=== PATIENT | male | born 1985 | race Caucasian/White ===

== ENCOUNTER 2021-01-14 13:10 | Emergency (ER) | payer OTHER, SELFPAY ==
--- NOTE | ~2021-01-14 | CT_ITS ---
EXAMINATION: CT brain wo con INDICATION: Altered mental status, intoxication COMPARISON: None TECHNIQUE: Standard unenhanced head CT. The dose-length product (DLP) was 681.00 mGy-cm. The mA was a djusted according to patient size. Iterative reconstruction technique was employed. FINDINGS: There is no intracranial hemorrhage, acute infarction, or abnormal mass lesion. The ventric les are normal. There is no abnormal mass effect or midline shift. The coyle-white matter differentiat ion is normal. The basal cisterns are patent. The orbits are normal. The paranasal sinuses, mastoids and calvarium are normal. IMPRESSION: 1. No acute intracranial abnormality. Reviewed, dictated and finalized at location A.
[2021-01-14 13:21] VITALS: BP 132/95; PULSE 99; RESP 20; TEMP 36.7; O2SAT 95
--- NOTE | 2021-01-14 13:36 | PC.NURSE ---
Pt took his prescription citalopram and buproprion as well as smoked marijuana and drank approx one and a half fifths of vodka. Per ex- pt was been drinking for approx 3 days and has been in rehab for alcohol before.
--- NOTE | 2021-01-14 13:41 | ECG_ITS ---
Measurements Intervals [place] Rate: 91 P: 18 OR: 177 QRS: -15 QRSD: 99 T: 20 QT: 366 QTc: 452 Interpretive Statements SINUS RHYTHM BASELINE WANDER- AVR, AVL, AVF NORMAL ECG Electronically Signed On 01-14-2021 14:00:05 CDT by Luis Troncoso D.O.
[2021-01-14 13:55] LABS: Basophils Absolute Auto 0.1 K/mm3 (0.0-0.1); Basophils Percent Auto 0.7 % (0.2-1.2); Eosinophils Absolute Auto 0.1 K/mm3 (0-0.3); Eosinophils Percent Auto 0.7 % (0-4.4); Hematocrit 49.6 % (42.0-52.0); Hemoglobin 17.4 g/dL (14.0-18.0); Immature Granulocyte Absolute 0.03 K/mm3 (0.00-0.031); Immature Granulocyte Percent A 0.3 % (0-0.5); Lymphocytes Absolute Auto 3.26 K/mm3 (0.9-3.2); Lymphocytes Percent Auto 37.3 % (18.3-44.2); Mean Corpuscular HGB Conc 35.1 g/dl (32-36); Mean Corpuscular Hemoglobin 32.8 pg (26-34); Mean Corpuscular Volume 93.4 fl (80-100); Mean Platelet Volume 9.7 fl (7.4-10.4); Monocytes Absolute Auto 0.5 K/mm3 (0.1-0.6); Monocytes Percent Auto 5.2 % (2.6-8.5); Neutrophils Absolute Auto 4.9 K/mm3 (1.3-6.7); Neutrophils Percent Auto 55.8 % (45.5-73.1); Platelet Count Result 272 k/mm3 (150-375); Red Blood Count 5.31 M/mm3 (4.6-6.20); Red Cell Distribution Width 11.7 % (11.5-14.5); White Blood Count 8.7 K/mm3 (4.5-10.0)
--- NOTE | 2021-01-14 13:55 | ED.AMS ---
HPI - Altered Mental Status General Chief Complaint: Altered Mental Status Stated Complaint: etoh intox Time Seen by Provider: 01/14/21 13:55 Source: patient and family Mode of arrival: ambulatory Limitations: no limitations History of Present Illness HPI narrative: Patient is a 35-year-old male with a history of alcohol abuse who presents for evaluation of altered mental status and alcohol intoxication. At the time of my assessment, the patient is alert and oriented to person, place, and to time. His sister and ex- are at bedside. The patient's ex- states that she checked on him today after not hearing from him for several hours and was worried given his history of alcohol abuse. When she showed up at the house, the patient answered the door and was acutely intoxicated. He currently is tearful, denying any headache, chest pain or abdominal pain. No nausea or vomiting. He reports drinking greater than 1/5 daily for the past 3 days. States that he has been a heavy daily drinker for many years. He denies history of alcohol withdrawal seizures. He states he was in a rehab facility once prior. He denies fever or chills. No recent falls or injuries. He does report marijuana use. Patient endorses many stressors currently including recent divorce from his precipitating his heavy drinking. Patient denies homicidal or suicidal ideation. States he has 2 children that he finds maegan in. Denies suicide attempt. Related Data Home Medications Medication Instructions Recorded Confirmed bupropion HCl 150 mg 24 hr tablet, 150 mg PO QAM 11/26/20 12/04/20 extended release citalopram 40 mg tablet 40 mg PO DAILY 11/26/20 12/04/20 hydrochlorothiazide 25 mg tablet 25 mg PO DAILY 11/26/20 12/04/20 losartan 50 mg tablet 50 mg PO DAILY 11/26/20 12/04/20 Allergies Allergy/AdvReac Type Severity Reaction Status Date / Time lisinopril Allergy Mild Cough Verified 11/26/20 14:13 Review of Systems Review of Systems: Narrative: CONSTITUTIONAL: Denies fever, chills, or sweats. EYES: Denies visual changes, redness, or discharge. ENT: Denies rhinorrhea, congestion, sore throat, or otalgia. CARDIOVASCULAR: Denies current chest pain, palpitations, or edema. RESPIRATORY: Denies cough or dyspnea. GASTROINTESTINAL: Denies abdominal pain, nausea, vomiting, or diarrhea. GENITOURINARY: Denies dysuria or hematuria. SKIN: Denies rash or itching. MUSCULOSKELETAL: Denies back pain, joint pain, or myalgia. NEUROLOGIC: Denies headache, numbness, or weakness. [facility] Past Medical History Medical History (Updated 01/14/21 @ 16:34 by Alina Em MD) BMI 39.0-39.9,adult ETOH abuse Hypertension Screening for thyroid disorder Family History Family History Other Family history of lung cancer Social History Social History (Updated 01/14/21 @ 14:50 by Alina Em MD) Smoking status: Never smoker Second hand tobacco smoke exposure: No Alcohol intake: current Substance use: current Substance use type: marijuana Living arrangements: alone Gender identity (if verbalized by the patient): Male Exam Narrative: Exam Narrative: GENERAL: Awake, alert, conversant, tearful HEAD: Normocephalic, atraumatic. EYES: PERRLA and EOMI. ENT: Nares clear, no rhinorrhea or epistaxis. Mucous membranes moist. NECK: Supple. CHEST: No respiratory distress, breathing even and non labored HEART: Borderline tachycardic rate, sinus rhythm ABDOMEN:Non distended, non tender EXTREMITIES: Normal range of motion. No edema. SKIN: Warm, dry, no rash. NEURO:No focal deficits. Alert and oriented x3 Course Vital Signs Vital signs: Vital Signs Temperature 36.7 C 01/14/21 13:21 Pulse Rate 99 01/14/21 13:21 Respiratory Rate 20 01/14/21 13:21 Blood Pressure 132/95 H 01/14/21 13:21 Pulse Oximetry 95 01/14/21 13:21 Temperature 36.7 C 01/14/21 13:21 Pulse Rate 99 01/14/21 13:
[2021-01-14 14:03] LABS: Alanine Aminotransferase 64 U/L (4-50); Albumin Level 4.5 g/dL (3.5-5.1); Alkaline Phosphatase 110 U/L (38-126); Anion Gap 12 mmol/L (8-16); Aspartate Amino Transferase 185 U/L (17-59); Bilirubin,Total 0.4 mg/dL (0.2-1.3); Blood Urea Nitrogen 10 mg/dL (9-20); Calcium 9.3 mg/dL (8.4-10.2); Carbon Dioxide 30 mmol/L (22-30); Chloride 104 mmol/L (98-107); Estimated CRCL calculation 176 ml/min; Estimated Glomerular Filt Rate > 60; Glucose 97 mg/dL (75-110); Sodium 146 mmol/L (137-145)
[2021-01-14] MEDS: THIAMINE HCL INJ 100 MG, FOLIC ACID INJ 1 MG, MULTIVITAMINS-12 INJ VIAL 1 5 ML, MULTIVI... IV CONT (14:41)
[2021-01-14 15:25] LABS: Add Urine Microscopic? YES; Appearance Urine Clear (Clear); Bacteria Urine Trace /hpf; Bilirubin Urine Negative (Negative); Blood Urine Negative (Negative); Color Urine Yellow (Yellow); Glucose Urine UA Negative (Negative); Ketones Urine Negative (Negative); Leukocyte Esterase Ur Negative LEU/UL (Negative); Nitrate Urine Negative (Negative); Protein Urine Negative (Negative); RBC Urine 0-2 /hpf (0-2); Specific Grav Ur 1.012 (1.001-1.035); WBC Urine 0-3 /hpf
[2021-01-14 15:33] LABS: Magnesium 1.9 mg/dL (1.6-2.3); Phosphorus 3.1 mg/dL (2.5-4.5)
[2021-01-14 16:13] LABS: Ethanol 341 mg/dL (<10)
[2021-01-14 16:32] LABS: Amphetamine Screen Urine Negative (Negative); Barbiturate Screen Urine Negative (Negative); Benzodiazepines Screen Urine Negative (Negative); Cannabinoid Screen Urine Positive (Negative); Cocaine Screen Urine Negative (Negative); Methadone Screen Urine Negative (Negative); Opiate Screen Urine Negative (Negative); Phencyclidine Screen Urine Negative (Negative)
[2021-01-14 17:06] VITALS: BP 150/100; PULSE 95; RESP 13; O2SAT 99
== END 2021-01-14 17:18 | disposition home or self-care (01) ==
PROVIDERS: Emergency Medicine; Emergency Provider Emergency Medicine; PCP Family Medicine
DX: F10.129 Alcohol abuse with intoxication, unspecified (principal); Y90.0 Blood alcohol level of less than 20 mg/100 ml; I10 Essential (primary) hypertension
CPT/HCPCS: 36415; 70450; 80053; 80307; 81001; 83735; 84100; 84443; 85025; 93005; 96365; 96366; 99284; J3411; J3475; J7121

== ENCOUNTER 2022-05-20 10:43 | Observation (INO) | payer OTHER, SELFPAY ==
[2022-05-20] VITALS (36 sets, daily range): BP systolic 102–170; BP diastolic 61–116; PULSE 93–108; RESP 14–25; TEMP 36.8–37; O2SAT 88–100; BMI 45.6
--- NOTE | ~2022-05-20 | XR_ITS ---
EXAMINATION: XR chest 2V DATE: 05/20/2022 11:29 INDICATION: Chest pain TECHNIQUE: AP and lateral views of the chest are obtained. COMPARISON: None available FINDINGS: The lungs are free of acute opacities. No pleural effusion or pneumothorax. The cardiomedia stinal silhouette is normal. The visualized bones and soft tissues are unremarkable. Calcified pulmon lex nodules are consistent with old granulomatous disease. IMPRESSION: 1. No acute cardiopulmonary abnormality. Reviewed, dictated and finalized at location A.
--- NOTE | 2022-05-20 10:54 | ECG_ITS ---
Measurements Intervals [place] Rate: 107 P: 52 DE: 161 QRS: -31 QRSD: 98 T: 30 QT: 329 QTc: 439 Interpretive Statements SINUS TACHYCARDIA LEFT AXIS DEVIATION POOR R WAVE PROGRESSION, ANTERIOR LEADS BASELINE ARTIFACT- I, III, AVL ABNORMAL ECG COMPARED TO ECG 01/14/2021 13:53:15 SINUS TACHYCARDIA NOW PRESENT LEFT-AXIS DEVIATION NOW PRESENT Electronically Signed On 05-20-2022 11:17:14 CDT by Luis Troncoso D.O.
[2022-05-20 11:16] LABS: Basophils Absolute Auto 0.1 K/mm3 (0.0-0.1); Basophils Percent Auto 0.5 % (0.2-1.2); Eosinophils Percent Auto 0.1 % (0-4.4); Immature Granulocyte Absolute 0.07 K/mm3 (0.00-0.031); Immature Granulocyte Percent A 0.5 % (0-0.5); Lymphocytes Absolute Auto 2.15 K/mm3 (0.9-3.2); Lymphocytes Percent Auto 14.2 % (18.3-44.2); Mean Corpuscular HGB Conc 35.3 g/dl (32-36); Mean Corpuscular Hemoglobin 30.4 pg (26-34); Monocytes Absolute Auto 0.8 K/mm3 (0.1-0.6); Monocytes Percent Auto 5.1 % (2.6-8.5); Neutrophils Absolute Auto 12.1 K/mm3 (1.3-6.7); Neutrophils Percent Auto 79.6 % (45.5-73.1); Platelet Count Result 270 k/mm3 (150-375); Red Blood Count 5.93 M/mm3 (4.6-6.20); Red Cell Distribution Width 13.2 % (11.5-14.5); White Blood Count 15.2 K/mm3 (4.5-10.0)
[2022-05-20 11:40] LABS: Albumin Level 4.8 g/dL (3.5-5.1); Alkaline Phosphatase 139 U/L (38-126); Anion Gap 20 mmol/L (8-16); Aspartate Amino Transferase 75 U/L (17-59); Bilirubin,Total 1.4 mg/dL (0.2-1.3); Blood Urea Nitrogen 13 mg/dL (9-20); Calcium 9.4 mg/dL (8.4-10.2); Carbon Dioxide 24 mmol/L (22-30); Chloride 93 mmol/L (98-107); Estimated CRCL calculation 150 ml/min; Estimated Glomerular Filt Rate > 60; Glucose 125 mg/dL (65-110); Lipase 66 U/L (23-300); Potassium 3.9 mmol/L (3.4-5.0); Sodium 137 mmol/L (137-145)
[2022-05-20 11:43] LABS: Troponin I 0.029 ng/mL (0.000-0.034)
[2022-05-20 11:47] LABS: Alanine Aminotransferase 100 U/L (6-50)
[2022-05-20 11:51] LABS: Ethanol < 10 mg/dL (<10)
[2022-05-20 11:58] LABS: INR 1.1; Prothrombin Time 13.7 Seconds (11.1-14.7)
[2022-05-20 11:59] LABS: Partial Thromboplastin Time 27.7 SECONDS (22.3-36.8)
[2022-05-20] MEDS: SODIUM CHLORIDE 0.9% IV 1,000 ML 999 ML IV CONT (12:02)
[2022-05-20] MEDS: PANTOPRAZOLE SODIUM IV 40 MG VIAL IV PUSH ×2 (12:03→20:16)
[2022-05-20] MEDS: ONDANSETRON INJ 4 MG/2 ML VIAL IV PUSH (12:03)
[2022-05-20 12:22] LABS: Amphetamine Screen Urine Negative (Negative); Barbiturate Screen Urine Negative (Negative); Benzodiazepines Screen Urine Negative (Negative); Cannabinoid Screen Urine Positive (Negative); Cocaine Screen Urine Negative (Negative); Methadone Screen Urine Negative (Negative); Opiate Screen Urine Negative (Negative); Phencyclidine Screen Urine Negative (Negative)
--- NOTE | 2022-05-20 12:29 | ED.ALCOHOL ---
HPI - Alcohol General Chief Complaint: Alcohol Stated Complaint: ETOH WITHDRAWLS Time Seen by Provider: 05/20/22 11:40 Source: patient Mode of arrival: ambulatory Limitations: no limitations History of Present Illness HPI narrative: This is a 36 year old male that presents to the ER for alcohol withdrawal. Reports he was on a stone the last couple of days. He drinks vodka and beer. Reports his last drink was at about 1AM. Reports some chest discomfort that started yesterday. Reports a tightness. It was improved with Protonix. Also reports nausea, vomiting, feeing shaky, anxiousness. Reports his blood pressure has been elevated as well as his heart rate. Reports he was seeing patterns on his carpet this morning. Also reports shortness of breath. Denies lower extremity edema. Related Data Home Medications Medication Instructions Recorded Confirmed clonidine HCl 0.1 mg tablet 0.1 mg PO DAILY 05/15/21 08/13/21 Allergies Allergy/AdvReac Type Severity Reaction Status Date / Time lisinopril Allergy Mild Cough Verified 05/20/22 08:42 Review of Systems Review of Systems: CONSTITUTIONAL: Denies fever EYES: Reports visual changes CARDIOVASCULAR: Reports chest pain RESPIRATORY: Reports dyspnea. GASTROINTESTINAL: Reports nausea, vomiting PSYCHIATRIC: Reports anxiety All systems reviewed & are unremarkable except as noted in HPI and below PMFSH Past Medical History Medical History (Updated 05/20/22 @ 14:31 by Nancie Leos PA-C) Alcohol abuse Anxiety and depression Anxiety disorder, unspecified BMI 39.0-39.9,adult BMI 40.0-44.9, adult BMI 45.0-49.9, adult Dietary counseling and surveillance (09/02/17) Essential (primary) hypertension ETOH abuse Hypertension Impacted cerumen of left ear Influenza Morbid (severe) obesity due to excess calories Screening for diabetes mellitus Screening for lipid disorders Screening for thyroid disorder Surgical History Surgical History (Updated 05/20/22 @ 13:44 by Lucia Garzon NP) H/O wisdom tooth extraction Family History Family History Father Alcohol abuse Mother Tobacco abuse Sibling No problems noted. Other Family history of lung cancer Social History Social History (Updated 05/20/22 @ 13:46 by Lucia Garzon NP) Social History: 2 daughters divorved yakov guzman Smoking status: Current some day smoker (vaping, e cigarette) Tobacco type: e-cigarettes/vaping Second hand tobacco smoke exposure: Yes Alcohol intake: current Substance use: current Substance use type: marijuana Additional occupation/education comments: [employer]. Gender identity (if verbalized by the patient): Male Exam Narrative: GENERAL: Well-nourished, in no acute distress HEAD: Normocephalic, atraumatic. EYES: EOMI. ENT: Nares clear, no rhinorrhea or epistaxis. Mucous membranes moist. Oropharynx without tonsillar hypertrophy exudate or other lesions. NECK: Supple. No adenopathy or masses. CHEST: Clear to auscultation. No respiratory distress. No wheezes rales or rhonchi HEART: Regular rate and rhythm. No murmur heard. Normal peripheral pulses. ABDOMEN: Soft, nontender, nondistended, normal active bowel sounds. EXTREMITIES: Normal range of motion. No edema. SKIN: Warm, dry, no rash. NEURO: No focal deficits. Alert and oriented x3. PSYCH: Anxious Course Consultations Consultation #1: Spoke with hospitalist about patient and work-up who accepts admission Date: 05/20/22 Vital Signs Vital signs: Vital Signs Pulse Rate 103 H 05/20/22 10:53 Respiratory Rate 17 05/20/22 10:53 Pulse Oximetry 97 05/20/22 10:53 Temperature 98.2 F 05/20/22 10:55 Pulse Rate 93 05/20/22 13:28 Respiratory Rate 21 H 05/20/22 13:28 Blood Pressure 170/89 H 05/20/22 13:28 Pulse Oximetry 99 05/20/22 13:28 Oxygen Delivery Room Air 05/20/22 10:55 MDM - Alcohol MDM Narrative [facility]
[2022-05-20] MEDS: LORazepam INJ (*CRX) 2 MG/ML VIAL 1 MG IV PUSH (12:56)
--- NOTE | 2022-05-20 13:18 | PM.IMHP ---
H&P: HPI History of Present Illness Date/Time: 05/20/22 13:18 Chief Complaint: Alcohol withdrawal Narrative: This is a 36-year-old male patient who has a history of alcoholism and has been to rehab for the 3rd time now. The patient stated that he was sober for quite some time but has been having a Samuel for in the last couple days by drinking vodka and beer. He started drinking at 1:00 a.m. this morning and about 3 or 4 hours later he finish it off. The patient was having some chest discomfort yesterday and has been having visual hallucinations. He has a hand tremors. The patient has nausea and vomiting and anxiety. The patient stated that he ran out of his medication for his depression and anxiety a few days ago and that is when he started drinking again. The patient was ordered a banana bag, Zofran, Ativan, and Protonix. His white count is 15.2. Total bilirubin is 1.4. AST 75. ALT is 100 alkaline phosphatase is 139. Troponins are negative x2. Tox screen is only positive for cannabinoid. ETOH is less than 10. The patient is being admitted for observation status on the date of service 05/20/2022 Review of Systems Review of Systems: See HPI All systems reviewed & are unremarkable except as noted in HPI and below Constitutional: Constitutional: Reports as per HPI and Reports no additional constitutional complaints Eyes: Eyes: Reports as per HPI and Reports no additional eye complaints ENT: Reports system reviewed and no additional complaints, except as documented and Reports Normal hearing present Cardiovascular: Cardiovascular: Reports no additional cardiovascular complaints Respiratory: Respiratory: Reports no additional respiratory complaints and Reports no additional respiratory complaints Gastrointestinal: Gastrointestinal: Reports as per HPI and Reports no additional gastrointestinal complaints Musculoskeletal: Musculoskeletal: Reports no additional musculoskeletal complaints Integumentary/Breasts: Skin/Breast: Reports system reviewed and no additional complaints, except as docu and Reports as per HPI Neurologic: Reports system reviewed and no additional complaints, except as documented, Reports as per HPI and Reports Normal hearing present Psychiatric: Psychiatric: Reports no additional psychiatric complaints and Reports as per HPI Endocrine: Endocrine: Reports no additional endocrine complaints Hematologic/Lymphatic: Hematologic/Lymphatic: Reports no additional hematologic/lymphatic complaints Allergic/Immunologic: Allergic/Immunologic: Reports no additional allergic/immunologic complaints [facility] Past Medical History Medical History (Updated 05/20/22 @ 15:22 by Lucia Garzon NP) Alcohol abuse Anxiety and depression Anxiety disorder, unspecified BMI 39.0-39.9,adult BMI 40.0-44.9, adult BMI 45.0-49.9, adult Dietary counseling and surveillance (09/02/17) Essential (primary) hypertension ETOH abuse Hypertension Impacted cerumen of left ear Influenza Morbid (severe) obesity due to excess calories Screening cholesterol level Screening for diabetes mellitus Screening for diabetes mellitus Screening for lipid disorders Screening for thyroid disorder Surgical History Surgical History H/O wisdom tooth extraction Family History Family History Father Alcohol abuse Mother Tobacco abuse Sibling No problems noted. Other Family history of lung cancer Social History Social History (Updated 05/20/22 @ 15:23 by Lucia Garzon NP) Social History: The patient has 2 small daughters. He is Divorved and his ex- yakov talavera is his durable [id number] for healthcare. He does use marijuana. The patient has minute managing on vodka and beer over the last several days. He could not quantify the amount. 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 Patient uses E cigarettes.
[2022-05-20] MEDS: THIAMINE HCL INJ 100 MG, FOLIC ACID INJ 1 MG, MULTIVITAMINS-12 INJ VIAL 1 5 ML, MULTIVI... IV CONT (14:03)
[2022-05-20 14:44] LABS: Troponin I < 0.012 ng/mL (0.000-0.034)
--- NOTE | 2022-05-20 17:02 | ADMIMU ---
This patient, Deejay Marinelli, was admitted to IMU status, and placed in Intensive Care Unit-7. Patient/family oriented to hospital policies and general routines including ID bracelet, bed and alarms, visiting hours, pain management, procedures, bathroom and other care routines, personal items, smoking policy, room service/diet, and visiting hours. Valuables list has been completed. Information on how to activate the Rapid Response Team has been discussed. Patient/Family are encouraged to report perceived risks to care and to ask questions if they do not understand what they are told or what they should do.
[2022-05-20] MEDS: chlordiazePOXIDE (*CRX) 25 MG CAPSULE 50 MG PO (17:50)
[2022-05-20 17:53] LABS: Glucose Point of Care 119 mg/dl (65-105)
[2022-05-20 18:05] LABS: Troponin I < 0.012 ng/mL (0.000-0.034)
[2022-05-20] MEDS: ACETAMINOPHEN 325 MG TABLET 650 MG PO (20:15)
--- NOTE | 2022-05-20 21:05 | PC.NURSE ---
Pt remorseful about drinking. States he wanted his primary to prescribe the medication that makes you sick if you drink and thinks it begins with a V. Pt also states he thinks he has sleep apnea because he has been told he snores and had stopped breathing at night.
[2022-05-20] MEDS: traZODone HCL 50 MG TABLET PO (21:08)
[2022-05-21] VITALS (11 sets, daily range): BP systolic 106–147; BP diastolic 64–104; PULSE 77–100; RESP 18–20; TEMP 36.2–36.8; O2SAT 95–100
[2022-05-21] MEDS: chlordiazePOXIDE (*CRX) 25 MG CAPSULE 50 MG PO ×4 (00:07→17:15)
[2022-05-21] MEDS: DEXTROSE 5%/0.45% SOD CHL 1,000 ML 125 ML IV CONT ×2 (00:08→09:00)
[2022-05-21 04:28] LABS: Basophils Percent Auto 0.6 % (0.2-1.2); Eosinophils Absolute Auto 0.1 K/mm3 (0-0.3); Eosinophils Percent Auto 1.8 % (0-4.4); Hematocrit 45.8 % (42.0-52.0); Hemoglobin 15.5 g/dL (14.0-18.0); Immature Granulocyte Absolute 0.01 K/mm3 (0.00-0.031); Immature Granulocyte Percent A 0.1 % (0-0.5); Lymphocytes Absolute Auto 2.55 K/mm3 (0.9-3.2); Lymphocytes Percent Auto 37.9 % (18.3-44.2); Mean Corpuscular HGB Conc 33.8 g/dl (32-36); Mean Corpuscular Hemoglobin 30.1 pg (26-34); Mean Corpuscular Volume 88.9 fl (80-100); Mean Platelet Volume 10.1 fl (7.4-10.4); Monocytes Absolute Auto 0.5 K/mm3 (0.1-0.6); Monocytes Percent Auto 7.6 % (2.6-8.5); Neutrophils Absolute Auto 3.5 K/mm3 (1.3-6.7); Platelet Count Result 164 k/mm3 (150-375); Red Blood Count 5.15 M/mm3 (4.6-6.20); Red Cell Distribution Width 13.2 % (11.5-14.5); White Blood Count 6.7 K/mm3 (4.5-10.0)
[2022-05-21 04:37] LABS: Lactic Acid Reflex 1.5 mmol/L (0.7-2.0)
[2022-05-21 04:38] LABS: Alanine Aminotransferase 62 U/L (6-50); Albumin Level 3.9 g/dL (3.5-5.1); Alkaline Phosphatase 102 U/L (38-126); Anion Gap 10 mmol/L (8-16); Aspartate Amino Transferase 63 U/L (17-59); Bilirubin,Total 1.8 mg/dL (0.2-1.3); Blood Urea Nitrogen 14 mg/dL (9-20); Calcium 8.5 mg/dL (8.4-10.2); Carbon Dioxide 32 mmol/L (22-30); Chloride 94 mmol/L (98-107); Estimated CRCL calculation 139 ml/min; Estimated Glomerular Filt Rate > 60; Glucose 110 mg/dL (65-110); Magnesium 2.1 mg/dL (1.6-2.3); Potassium 3.9 mmol/L (3.4-5.0); Sodium 136 mmol/L (137-145)
[2022-05-21] MEDS: buPROPion HCL XL (24 HR) 150 MG TABCR 300 MG PO (08:27)
[2022-05-21] MEDS: THIAMINE HCL 100 MG TABLET PO (08:27)
[2022-05-21] MEDS: PANTOPRAZOLE SODIUM IV 40 MG VIAL IV PUSH ×2 (08:27→20:30)
[2022-05-21] MEDS: LOSARTAN POTASSIUM 50 MG TABLET PO (08:27)
[2022-05-21] MEDS: FOLIC ACID 1 MG TABLET PO (08:28)
[2022-05-21] MEDS: ONDANSETRON INJ 4 MG/2 ML VIAL IV PUSH (08:35)
[2022-05-21] MEDS: THIAMINE HCL INJ 100 MG, FOLIC ACID INJ 1 MG, MULTIVITAMINS-12 INJ VIAL 1 5 ML, MULTIVI... IV CONT ×3 (09:30→20:36)
--- NOTE | 2022-05-21 10:21 | PM.IMPN ---
Progress Note: A&P Assessment and Plan (1) Alcohol withdrawal: Qualifiers: Complication of substance-induced condition: with perceptual disturbance Qualified Code(s): F10.932 - Alcohol use, unspecified with withdrawal with perceptual disturbance Code(s): F10.939 - Alcohol use, unspecified with withdrawal, unspecified Status: Acute Assessment and Plan: Banana bag, daily thiamine, Librium 50 mg q.6 hours, monitor CIWA score (2) Recurrent major depression resistant to treatment: Code(s): F33.9 - Major depressive disorder, recurrent, unspecified Status: Acute Assessment and Plan: Continue home meds (3) GERD (gastroesophageal reflux disease): Qualifiers: Esophagitis presence: without esophagitis Qualified Code(s): K21.9 - Gastro-esophageal reflux disease without esophagitis Code(s): K21.9 - Gastro-esophageal reflux disease without esophagitis Status: Acute Assessment and Plan: Stable, continue PPI (4) Hypertension: Qualifiers: Hypertension type: unspecified Qualified Code(s): I10 - Essential (primary) hypertension Code(s): I10 - Essential (primary) hypertension Status: Acute Assessment and Plan: will add clonidine for now d/t withdrawal symptoms, may need to increase losartan to 100 mg daily at d/c Plan DVT prophylaxis with SCDs GI prophylaxis with PPI Code status full code Subjective Date/time seen: 05/21/22 10:21 Interval history: Patient is somewhat tearful about his alcohol abuse. No overnight events noted. No chest pain or shortness of breath. No nausea, vomiting or diarrhea. No fevers or chills. Review of Systems Review of Systems: 12 point review of systems was assessed and was negative except as noted in the HPI Exam Narrative: General: No acute distress, alert and oriented per baseline HEENT: Atraumatic, normocephalic, mucous membranes moist CV: Regular rate and rhythm, S1, S2 Lungs: Clear to auscultation bilaterally, no rales or crackles noted, no wheezes, good air entry Abdomen: Soft, nontender, nondistended Extremities: Normal to inspection Skin: No rashes noted, no lesions or wounds seen Psych: Euthymic, normal affect Objective Data Vital Signs Vital Signs: Vital Signs - 24 hr 05/20/22 10:55 05/20/22 10:53 05/20/22 11:13 Temperature 98.2 F Pulse Rate 108 H 103 H 103 H Respiratory Rate 16 17 17 Blood Pressure 166/116 H Pulse Oximetry 99 97 96 Oxygen Delivery Room Air Oxygen Flow Rate Fraction of Inspired Oxygen 05/20/22 11:15 05/20/22 11:33 05/20/22 11:45 Temperature Pulse Rate 96 Respiratory Rate 19 17 18 Blood Pressure Pulse Oximetry 98 96 100 Oxygen Delivery Oxygen Flow Rate Fraction of Inspired Oxygen 05/20/22 12:01 05/20/22 12:15 05/20/22 12:31 Temperature Pulse Rate 105 H 97 99 Respiratory Rate 19 19 20 Blood Pressure Pulse Oximetry 97 94 98 Oxygen Delivery Oxygen Flow Rate Fraction of Inspired Oxygen 05/20/22 12:50 05/20/22 12:59 05/20/22 13:01 Temperature Pulse Rate 96 97 100 Respiratory Rate 14 21 H 22 H Blood Pressure 149/99 H 159/89 H Pulse Oximetry 98 97 96 Oxygen Delivery Oxygen Flow Rate Fraction of Inspired Oxygen 05/20/22 13:15 05/20/22 13:28 05/20/22 13:31 Temperature Pulse Rate 101 H 93 102 H Respiratory Rate 21 H 21 H 24 H Blood Pressure 170/89 H Pulse Oximetry 99 99 98 Oxygen Delivery Oxygen Flow Rate Fraction of Inspired Oxygen 05/20/22 13:41 05/20/22 13:47 05/20/22 14:00 Temperature Pulse Rate 104 H 101 H 99 Respiratory Rate 18 18 18 Blood Pressure 162/99 H Pulse Oximetry 94 98 98 Oxygen Delivery Oxygen Flow Rate Fraction of Inspired Oxygen 05/20/22 14:01 05/20/22 14:15 05/20/22 14:30 Temperature Pulse Rate 101 H 103 H 102 H Respiratory Rate 15 21 H 21 H Blood Pressure 163/89 H Pulse Oximetry 96 96
--- NOTE | 2022-05-21 12:12 | PC.NURSE ---
This patient, Deejay Marinelli, was received from [ICU 7] on 05/21/22 at 1200. Patient/family oriented to unit policies and routines. Got report from Carly.
--- NOTE | 2022-05-21 12:14 | PC.NURSE ---
This patient, Deejay Marinelli, was transferred to [facility] on 05/21/22 at [id number]. Personal belongings sent with patient. Report given to Susana PARADA. Appropriate documentation sent with patient.
[2022-05-21] MEDS: cloNIDine HCL 0.1 MG TABLET PO (13:22)
[2022-05-21] MEDS: DULoxetine HCL 30 MG CAPSULE.DR PO (13:46)
[2022-05-21] MEDS: traZODone HCL 50 MG TABLET PO (20:29)
--- NOTE | 2022-05-21 21:15 | PC.NURSE ---
Addendum entered by TESSY Estrada 05/22/22 01:06: administered catapres @0019. Original Note: Patient 2100 scheduled dose of Catapres held due to last administration being at 1322 and need to give every 12 hours. Will pass medication late at approximately 0100 05/22/22.
[2022-05-22] MEDS: cloNIDine HCL 0.1 MG TABLET PO ×2 (00:19→08:06)
[2022-05-22] MEDS: chlordiazePOXIDE (*CRX) 25 MG CAPSULE 50 MG PO ×2 (00:19→06:25)
[2022-05-22 05:54] VITALS: BP 118/72; PULSE 61; RESP 20; TEMP 36.4; O2SAT 100
[2022-05-22] MEDS: LOSARTAN POTASSIUM 50 MG TABLET PO (08:06)
[2022-05-22] MEDS: DULoxetine HCL 30 MG CAPSULE.DR PO (08:06)
[2022-05-22] MEDS: buPROPion HCL XL (24 HR) 150 MG TABCR 300 MG PO (08:06)
[2022-05-22] MEDS: PANTOPRAZOLE SODIUM IV 40 MG VIAL IV PUSH (08:07)
--- NOTE | 2022-05-22 10:07 | PM.IMPN ---
Progress Note: A&P Assessment and Plan (1) Alcohol withdrawal: Qualifiers: Complication of substance-induced condition: with perceptual disturbance Qualified Code(s): F10.932 - Alcohol use, unspecified with withdrawal with perceptual disturbance Code(s): F10.939 - Alcohol use, unspecified with withdrawal, unspecified Status: Acute Assessment and Plan: Daily thiamine and folic acid, decrease Librium to 25 mg q.6 hours today, monitor CIWA [facility] field care coordinator consultation regarding alcohol cessation support at discharge (2) Recurrent major depression resistant to treatment: Code(s): F33.9 - Major depressive disorder, recurrent, unspecified Status: Acute Assessment and Plan: Continue home meds (3) GERD (gastroesophageal reflux disease): Qualifiers: Esophagitis presence: without esophagitis Qualified Code(s): K21.9 - Gastro-esophageal reflux disease without esophagitis Code(s): K21.9 - Gastro-esophageal reflux disease without esophagitis Status: Acute Assessment and Plan: Stable, continue PPI (4) Hypertension: Qualifiers: Hypertension type: unspecified Qualified Code(s): I10 - Essential (primary) hypertension Code(s): I10 - Essential (primary) hypertension Status: Acute Assessment and Plan: Decrease clonidine from b.i.d. to q.h.s., blood pressure controlled at this time, may consider increasing losartan at discharge versus continuing clonidine (5) Transaminitis: Code(s): R74.01 - Elevation of levels of liver transaminase levels Status: Acute Assessment and Plan: AST and ALT as well as total bilirubin are elevated, not in the typical fashion for alcohol abuse, repeat pending for today, may need further workup for liver disease Plan DVT prophylaxis with SCDs GI prophylaxis with PPI Code status full code Subjective Date/time seen: 05/22/22 10:07 Interval history: No overnight events noted. No chest pain or shortness of breath. No nausea, vomiting or diarrhea. No fevers or chills. Review of Systems Review of Systems: 12 point review of systems was assessed and was negative except as noted in the HPI Exam Narrative: General: No acute distress, alert and oriented per baseline HEENT: Atraumatic, normocephalic, mucous membranes moist CV: Regular rate and rhythm, S1, S2 Lungs: Clear to auscultation bilaterally, no rales or crackles noted, no wheezes, good air entry Abdomen: Soft, nontender, nondistended Extremities: Normal to inspection Skin: No rashes noted, no lesions or wounds seen Psych: Euthymic, normal affect Objective Data Vital Signs Vital Signs: Vital Signs - 24 hr 05/21/22 12:01 05/21/22 12:00 05/21/22 15:08 Temperature 97.5 F L Pulse Rate 100 Pulse Rate [Radial Palpation] 100 Respiratory Rate 18 Blood Pressure 144/104 H 144/104 H 147/83 H Pulse Oximetry 99 Oxygen Delivery 05/21/22 21:31 05/21/22 20:00 05/21/22 20:00 Temperature 98.3 F Pulse Rate 88 Pulse Rate [Radial Palpation] Respiratory Rate 19 Blood Pressure 144/89 H 144/89 H Pulse Oximetry 98 Oxygen Delivery Room Air 05/22/22 05:54 05/22/22 08:00 Temperature 97.5 F L Pulse Rate 61 Pulse Rate [Radial Palpation] Respiratory Rate 20 Blood Pressure 118/72 Pulse Oximetry 100 Oxygen Delivery Room Air Intake/Output Intake/Output: Intake & Output 05/19/22 05/20/22 05/21/22 05/22/22 23:59 23:59 23:59 23:59 Intake Total 1710 4733.2 Output Total 1250 Balance 1710 3483.2 Meds/Results Medications: Active Medications Generic Name Dose Route Start Last Admin Trade Name Freq PRN Reason Stop Dose Admin Bupropion HCl 300 mg 05/21/22 09:00 05/22/22 08:06 Bupropion Hcl Xl (24 Hr) 150 Mg Tabcr PO 300 mg QAM ASIA Administration Chlordiazepoxide HCl 25 mg 05/22/22 12:00 Chlordiazepoxide (*Crx) 25 Mg Capsule PO Q6H
[2022-05-22 10:19] LABS: Basophils Percent Auto 0.5 % (0.2-1.2); Eosinophils Absolute Auto 0.2 K/mm3 (0-0.3); Eosinophils Percent Auto 3.4 % (0-4.4); Hematocrit 44.9 % (42.0-52.0); Hemoglobin 15.2 g/dL (14.0-18.0); Immature Granulocyte Absolute 0.02 K/mm3 (0.00-0.031); Immature Granulocyte Percent A 0.3 % (0-0.5); Lymphocytes Absolute Auto 1.33 K/mm3 (0.9-3.2); Lymphocytes Percent Auto 22.6 % (18.3-44.2); Mean Corpuscular HGB Conc 33.9 g/dl (32-36); Mean Corpuscular Hemoglobin 30.3 pg (26-34); Mean Corpuscular Volume 89.6 fl (80-100); Mean Platelet Volume 10.5 fl (7.4-10.4); Monocytes Absolute Auto 0.3 K/mm3 (0.1-0.6); Monocytes Percent Auto 5.8 % (2.6-8.5); Neutrophils Percent Auto 67.4 % (45.5-73.1); Platelet Count Result 151 k/mm3 (150-375); Red Blood Count 5.01 M/mm3 (4.6-6.20); Red Cell Distribution Width 13.2 % (11.5-14.5); White Blood Count 5.9 K/mm3 (4.5-10.0)
[2022-05-22 11:23] LABS: Alanine Aminotransferase 74 U/L (6-50); Albumin Level 4.3 g/dL (3.5-5.1); Alkaline Phosphatase 117 U/L (38-126); Anion Gap 7 mmol/L (8-16); Aspartate Amino Transferase 76 U/L (17-59); Blood Urea Nitrogen 13 mg/dL (9-20); Calcium 8.7 mg/dL (8.4-10.2); Carbon Dioxide 30 mmol/L (22-30); Chloride 100 mmol/L (98-107); Estimated CRCL calculation 154 ml/min; Estimated Glomerular Filt Rate > 60; Glucose 95 mg/dL (65-110); Sodium 137 mmol/L (137-145)
[2022-05-22] MEDS: chlordiazePOXIDE (*CRX) 25 MG CAPSULE PO (12:36)
--- NOTE | 2022-05-22 12:44 | PM.DS ---
DS: Admitting Diagnosis Discharge Date May 22, 2022 Admitting Diagnosis Hallucinations DS: Discharge Diagnosis Discharge Diagnosis (1) Alcohol withdrawal: Qualifiers: Complication of substance-induced condition: with perceptual disturbance Qualified Code(s): F10.932 - Alcohol use, unspecified with withdrawal with perceptual disturbance Code(s): F10.939 - Alcohol use, unspecified with withdrawal, unspecified Status: Acute Assessment and Plan: Daily thiamine and folic acid, decrease Librium to 25 mg q.6 hours today, monitor CIWA Appreciate rn urgent care consultation regarding alcohol cessation support at discharge (2) Recurrent major depression resistant to treatment: Code(s): F33.9 - Major depressive disorder, recurrent, unspecified Status: Acute Assessment and Plan: Continue home meds (3) GERD (gastroesophageal reflux disease): Qualifiers: Esophagitis presence: without esophagitis Qualified Code(s): K21.9 - Gastro-esophageal reflux disease without esophagitis Code(s): K21.9 - Gastro-esophageal reflux disease without esophagitis Status: Acute Assessment and Plan: Stable, continue PPI (4) Hypertension: Qualifiers: Hypertension type: unspecified Qualified Code(s): I10 - Essential (primary) hypertension Code(s): I10 - Essential (primary) hypertension Status: Acute Assessment and Plan: Decrease clonidine from b.i.d. to q.h.s., blood pressure controlled at this time, may consider increasing losartan at discharge versus continuing clonidine (5) Transaminitis: Code(s): R74.01 - Elevation of levels of liver transaminase levels Status: Acute Assessment and Plan: AST and ALT as well as total bilirubin are elevated, not in the typical fashion for alcohol abuse, repeat pending for today, may need further workup for liver disease Plan DVT prophylaxis with SCDs GI prophylaxis with PPI Code status full code DS: Summary Hospital Course Hospital Course: 36-year-old male patient who has a history of alcoholism and has been to rehab for the 3rd time now.? The patient stated that he was sober for quite some time but has been having a Samuel for in the last couple days by drinking vodka and beer.? He started drinking at 1:00 a.m. this morning and about 3 or 4 hours later he finish it off.? The patient was having some chest discomfort yesterday and has been having visual hallucinations.? He has a hand tremors.? The patient has nausea and vomiting and anxiety.? The patient stated that he ran out of his medication for his depression and anxiety a few days ago and that is when he started drinking again.? The patient was ordered a banana bag, Zofran, Ativan, and Protonix.? His white count is 15.2.? Total bilirubin is 1.4.? AST 75.? ALT is 100 alkaline phosphatase is 139.? Troponins are negative x2.? Tox screen is only positive for cannabinoid.? ETOH is less than 10. He was admitted with Librium scheduled, CIWA scores being monitored. He was noted to have elevated blood pressure and he was started on clonidine 0.1 mg q.h.s. for both withdrawal symptoms and blood pressure control. Home medications were restarted. All symptoms resolved. Librium was weaned and patient did well. Therefore, he was discharged in good condition with close outpatient follow-up by Psychology/Psychiatry, family Practice and a 1 month supply of all of his medications. Time Spent with Patient Time attestation: Total time spent providing and/or coordinating discharge services: Exam Narrative: General: No acute distress, alert and oriented per baseline HEENT: Atraumatic, normocephalic, mucous membranes moist CV: Regular rate and rhythm, S1, S2 Lungs: Clear to auscultation bilaterally, no rales or crackles noted, no wheezes, good air entry Abdomen: Soft, nontender, nondistended Extremities: Normal to inspection Skin: No rashes noted, no le
== END 2022-05-22 14:20 | disposition home or self-care (01) ==
LOC: ANHED 14:31 → ANHICU 15:56 → ANH3MEDSUR 05-21 11:54
PROVIDERS: Nurse Practitioner; Physician Assistant; Admitting Provider Student in an Organized Health Care Education/Training Program; Emergency Provider Emergency Medicine; PCP Family Medicine; Visit Provider Student in an Organized Health Care Education/Training Program
DX: F10.932 Alcohol use, unspecified with withdrawal with perceptual disturbance (principal); R07.89 Other chest pain; I10 Essential (primary) hypertension; E66.01 Morbid (severe) obesity due to excess calories; Z68.42 Body mass index [BMI] 45.0-49.9, adult; Z72.0 Tobacco use; F33.9 Major depressive disorder, recurrent, unspecified; K21.9 Gastro-esophageal reflux disease without esophagitis
CPT/HCPCS: 36415; 71046; 80053; 80307; 82728; 82948; 83605; 83690; 83735; 84443; 84484; 85025; 85610; 85730; 93005; 96365; 96366; 96374; 96375; 96376; 99285; A9270; C9113; G0378; J2060; J2405; J3411; J3475; J7030; J7120; J7121

== ENCOUNTER 2022-06-29 07:58 | Outpatient (CLI) | payer OTHER, SELFPAY ==
--- NOTE | ~2022-06-29 | US_ITS ---
EXAMINATION: US right upper quadrant DATE: 06/29/2022 08:36 INDICATION: Elevation of the levels of liver transaminase levels. TECHNIQUE: Multiple grayscale and Doppler ultrasound images of the abdomen were obtained. COMPARISON: None FINDINGS: The visualized portion of the body of the pancreas is normal. There is diffuse hepatic stea tosis. There is normal flow in main portal vein. There is a gallstone in the gallbladder, which is no rmal in size. Gallbladder wall thickening is noted. There is no sonographic Brice sign. The common d uct is normal and measures 4 mm. IMPRESSION: 1. Diffuse hepatic steatosis. 2. Cholelithiasis. Gallbladder wall thickening may be secondary to chronic cholecystitis, chronic lisandro er disease, or interstitial edema. Reviewed, dictated and finalized at location A. RICAL CONTROL MACHINE MACHINIST IMPRESSION: 1. Diffuse hepatic steatosis. 2. Cholelithiasis. Gallbladder wall thickening may be secondary to chronic chol ecystitis, chronic liver disease, or interstitial edema.
[2022-06-29 08:58] LABS: Hematocrit 45.3 % (42.0-52.0); Hemoglobin 15.5 g/dL (14.0-18.0); Mean Corpuscular HGB Conc 34.2 g/dl (32-36); Mean Corpuscular Hemoglobin 29.6 pg (26-34); Mean Corpuscular Volume 86.5 fl (80-100); Mean Platelet Volume 10.6 fl (7.4-10.4); Platelet Count Result 216 k/mm3 (150-375); Red Blood Count 5.24 M/mm3 (4.6-6.20); Red Cell Distribution Width 13.1 % (11.5-14.5); White Blood Count 8.1 K/mm3 (4.5-10.0)
[2022-06-29 09:06] LABS: Alanine Aminotransferase 34 U/L (6-50); Albumin Level 4.3 g/dL (3.5-5.1); Alkaline Phosphatase 118 U/L (38-126); Anion Gap 15 mmol/L (8-16); Aspartate Amino Transferase 30 U/L (17-59); Bilirubin,Total 0.4 mg/dL (0.2-1.3); Blood Urea Nitrogen 14 mg/dL (9-20); Carbon Dioxide 25 mmol/L (22-30); Chloride 102 mmol/L (98-107); Estimated Glomerular Filt Rate > 60; Glucose 103 mg/dL (65-110); Potassium 4.3 mmol/L (3.4-5.0); Sodium 142 mmol/L (137-145)
[2022-06-29 09:12] LABS: Iron 74 ug/dL (49-181)
[2022-06-29 09:20] LABS: Percent Iron Saturation 23 % (20-50)
[2022-06-29 09:44] LABS: Hepatitis B Surface Antigen Negative (Negative)
[2022-06-29 09:49] LABS: HAV RESULT Negative (Negative); Hepatitis B Core IgM Result Negative (Negative)
[2022-06-29 10:01] LABS: Hepatitis C Virus Antibody Negative (Negative)
[2022-07-01 21:39] LABS: Mitochondrial (M2) Ab (IgG) <=20.0 U (<=20.0)
[2022-07-02 19:34] LABS: Ceruloplasmin 30 mg/dL (18-36)
[2022-07-07 00:27] LABS: ALT 27 U/L (9-46); Alpha-2-Macroglobulin 183 mg/dL (106-279); Apolipoprotein A1 136 mg/dL (94-176); Fibrosis Score 0.16; Fibrosis Stage F0; GGT 105 U/L (3-90); Haptoglobin 179 mg/dL (43-212); Necroinflammat Act Grade A0; Total Bilirubin 0.3 mg/dL (0.2-1.2)
== END 2022-06-29 07:59 | disposition home or self-care (01) ==
PROVIDERS: PCP Family Medicine; Visit Provider Internal Medicine Gastroenterology
DX: R74.01 Elevation of levels of liver transaminase levels (principal); R74.8 Abnormal levels of other serum enzymes; F10.10 Alcohol abuse, uncomplicated; K80.20 Calculus of gallbladder without cholecystitis without obstruction
CPT/HCPCS: 36415; 76705; 80053; 80074; 81596; 82103; 82104; 82390; 82728; 83520; 83540; 83550; 85027; 86038

== ENCOUNTER 2022-12-29 16:12 | Emergency (ER) | payer OTHER, SELFPAY ==
[2022-12-29 16:14] VITALS: BP 156/84; PULSE 110; RESP 22; TEMP 36.7; O2SAT 95
--- NOTE | 2022-12-29 16:24 | ECG_ITS ---
Measurements Intervals [place] Rate: 107 P: 38 LA: 174 QRS: -16 QRSD: 105 T: 30 QT: 328 QTc: 439 Interpretive Statements SINUS TACHYCARDIA POOR R WAVE PROGRESSION, ANTERIOR LEADS INFERIOR INFARCT, AGE INDETERMINATE ABNORMAL ECG COMPARED TO ECG 05/20/2022 11:03:54 MYOCARDIAL INFARCT FINDING NOW PRESENT Electronically Signed On 12-29-2022 21:09:52 CDT by Luis Troncoso D.O.
[2022-12-29 16:29] LABS: Glucose Point of Care 113 mg/dl (65-105)
--- NOTE | 2022-12-29 16:47 | ED.ALCOHOL ---
HPI - Alcohol General Chief Complaint: Alcohol Stated Complaint: etoh Time Seen by Provider: 12/29/22 16:27 History of Present Illness HPI narrative: 37-year-old male history of alcohol abuse, anxiety and depression, hypertension presents to the emergency room who is currently intoxicated. Patient states that he drank 2 bottles of whiskey prior to arrival. States that he normally drinks 1 fifth daily. States attempts to go to AA, but life stressors have prevented him from staying sober. Patient is alert and oriented x3 on arrival. He arrived with his AA sponsor. Patient is requesting to go to inpatient alcohol treatment. Related Data Allergies Allergy/AdvReac Type Severity Reaction Status Date / Time lisinopril Allergy Mild Cough Verified 12/29/22 16:22 Review of Systems Review of Systems: CONSTITUTIONAL: Denies fever, chills, or sweats. EYES: Denies visual changes, redness, or discharge. ENT: Denies rhinorrhea, congestion, sore throat, or otalgia. CARDIOVASCULAR: Denies chest pain, palpitations, or edema. RESPIRATORY: Denies cough or dyspnea. GASTROINTESTINAL: Reports nausea GENITOURINARY: Denies dysuria or hematuria. SKIN: Denies rash or itching. MUSCULOSKELETAL: Denies back pain, joint pain, or myalgia. NEUROLOGIC: Denies headache, numbness, dizziness, or weakness. PSYCHIATRIC: Denies anxiety or depression. [facility] Past Medical History Medical History Alcohol abuse Anxiety and depression Anxiety disorder, unspecified BMI 39.0-39.9,adult BMI 40.0-44.9, adult BMI 45.0-49.9, adult Dietary counseling and surveillance (09/02/17) Essential (primary) hypertension ETOH abuse Hepatitis A Hypertension Impacted cerumen of left ear Influenza Morbid (severe) obesity due to excess calories Screening cholesterol level Screening for diabetes mellitus Screening for diabetes mellitus Screening for lipid disorders Screening for thyroid disorder Surgical History Surgical History H/O wisdom tooth extraction Family History Family History Father Alcohol abuse Hypertension Mother Tobacco abuse Sibling Hypertension Social History Social History Social History: The patient has 2 small daughters. He is Divorved and his ex- yakov talavera is his durable [id number] for healthcare. He does use marijuana. The patient has minute managing on vodka and beer over the last several days. He could not quantify the amount. 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 Patient uses E cigarettes. 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 Gender identity (if verbalized by the patient): Male Spiritual care concerns: No Exam Narrative: GENERAL: Well-appearing, well-nourished, no physical limitations, tearful and intoxicated HEAD: Normocephalic, atraumatic. EYES: Conjunctivae normal, PERRLA and EOMI. CHEST: Clear to auscultation. No respiratory distress. No wheezes rales or rhonchi. HEART: Regular rate and rhythm. No murmur heard. Normal peripheral pulses. ABDOMEN: Soft, nontender, obese, nondistended, normal active bowel sounds. EXTREMITIES: Normal range of motion. No edema. No clubbing or cyanosis SKIN: Warm, dry, no rash. No noted wounds NEURO: No focal deficits. Alert and oriented x3. MAEW. CN's II-XI intact bilaterally, normal gait PSYCH: Cooperative. Tearful. Course Vital Signs Vital signs: Vital Signs Temperature 36.7 C 12/29/22 16:14 Pulse Rate 110 H 12/29/22 16:14 Respira
[2022-12-29 16:53] LABS: INR 0.9; Prothrombin Time 12.6 Seconds (11.1-14.7)
[2022-12-29] MEDS: SODIUM CHLORIDE 0.9% IV 1,000 ML 999 ML IV CONT (16:53)
[2022-12-29] MEDS: ONDANSETRON INJ 4 MG/2 ML VIAL IV PUSH (16:53)
[2022-12-29] MEDS: LORazepam INJ (*CRX) 2 MG/ML VIAL 1 MG IV PUSH (16:54)
[2022-12-29] MEDS: THIAMINE HCL 200 MG/2 ML VIAL 100 MG IV PUSH (16:54)
[2022-12-29 16:55] VITALS: BP 134/88; PULSE 107; RESP 18; O2SAT 95
[2022-12-29 17:00] LABS: Alanine Aminotransferase 123 U/L (6-50); Albumin Level 5.2 g/dL (3.5-5.1); Alkaline Phosphatase 139 U/L (38-126); Anion Gap 17 mmol/L (8-16); Aspartate Amino Transferase 152 U/L (17-59); Bilirubin,Total 1.1 mg/dL (0.2-1.3); Blood Urea Nitrogen 12 mg/dL (9-20); Calcium 9.7 mg/dL (8.4-10.2); Carbon Dioxide 31 mmol/L (22-30); Chloride 94 mmol/L (98-107); Estimated CRCL calculation 119 ml/min; Estimated Glomerular Filt Rate > 60; Glucose 105 mg/dL (65-110); Potassium 4.6 mmol/L (3.4-5.0); Sodium 142 mmol/L (137-145)
[2022-12-29 17:04] LABS: Ethanol 417 mg/dL (<10)
[2022-12-29 17:21] LABS: Basophils Absolute Auto 0.1 K/mm3 (0.0-0.1); Basophils Percent Auto 0.6 % (0.2-1.2); Eosinophils Percent Auto 0.3 % (0-4.4); Hematocrit 48.8 % (42.0-52.0); Hemoglobin 16.9 g/dL (14.0-18.0); Immature Granulocyte Absolute 0.03 K/mm3 (0.00-0.031); Immature Granulocyte Percent A 0.4 % (0-0.5); Lymphocytes Absolute Auto 3.35 K/mm3 (0.9-3.2); Lymphocytes Percent Auto 42.4 % (18.3-44.2); Mean Corpuscular HGB Conc 34.6 g/dl (32-36); Mean Corpuscular Hemoglobin 32.1 pg (26-34); Mean Corpuscular Volume 92.8 fl (80-100); Mean Platelet Volume 9.6 fl (7.4-10.4); Monocytes Absolute Auto 0.7 K/mm3 (0.1-0.6); Neutrophils Absolute Auto 3.7 K/mm3 (1.3-6.7); Neutrophils Percent Auto 47.3 % (45.5-73.1); Platelet Count Result 281 k/mm3 (150-375); Red Blood Count 5.26 M/mm3 (4.6-6.20); Red Cell Distribution Width 12.8 % (11.5-14.5); White Blood Count 7.9 K/mm3 (4.5-10.0)
[2022-12-29 17:32] LABS: Add Urine Microscopic? YES; Appearance Urine Clear (Clear); Bacteria Urine None Seen /hpf; Bilirubin Urine Negative (Negative); Blood Urine Trace (Negative); Color Urine Yellow (Yellow); Glucose Urine UA Negative (Negative); Ketones Urine Trace mg/dL (Negative); Leukocyte Esterase Ur Negative LEU/UL (Negative); Need Manual Microscopic Reviewed; Nitrate Urine Negative (Negative); Non Pathogenic Casts 0-2; Protein Urine Trace mg/dL (Negative); RBC Urine 0-2 /hpf (0-2); Specific Grav Ur 1.006 (1.001-1.035); Squamous Epithelial Cell Urine None seen /hpf (Few); Urobilinogen Urine 0.2 mg/dL (<2.0); WBC Urine 0-5 /hpf
[2022-12-29 17:49] VITALS: BP 143/80; PULSE 114; RESP 18; O2SAT 96
[2022-12-29 18:06] LABS: Amphetamine Screen Urine Negative (Negative); Barbiturate Screen Urine Negative (Negative); Benzodiazepines Screen Urine Negative (Negative); Cannabinoid Screen Urine Positive (Negative); Cocaine Screen Urine Negative (Negative); Methadone Screen Urine Negative (Negative); Opiate Screen Urine Negative (Negative); Phencyclidine Screen Urine Negative (Negative)
[2022-12-29 18:36] VITALS: BP 158/68; PULSE 115; RESP 20; O2SAT 94
== END 2022-12-29 18:58 | disposition home or self-care (01) ==
PROVIDERS: Emergency Medicine; Emergency Provider Nurse Practitioner Family; PCP Family Medicine
DX: F10.129 Alcohol abuse with intoxication, unspecified (principal); I10 Essential (primary) hypertension; F41.9 Anxiety disorder, unspecified; F32.A Depression, unspecified; E66.01 Morbid (severe) obesity due to excess calories; Z68.42 Body mass index [BMI] 45.0-49.9, adult; F17.290 Nicotine dependence, other tobacco product, uncomplicated; Y90.8 Blood alcohol level of 240 mg/100 ml or more
CPT/HCPCS: 36415; 80053; 80307; 81001; 82948; 85025; 85610; 93005; 96361; 96374; 96375; 99284; J2060; J2405; J3411; J7030

== ENCOUNTER 2023-06-30 10:12 | Emergency (ER) | payer OTHER, SELFPAY ==
--- NOTE | ~2023-06-30 | CT_ITS ---
Non-contrast Head CT History: Altered mental status COMPARISON: 01/14/2021 Technique: Axial non-contrast imaging of the brain was performed. Dose reduction technique was used on this scan by utilizing automated exposure control and iterative reconstruction technique. The dose -length product (DLP) was 1362.00 mGy-cm. Findings: There is no evidence of intracranial hemorrhage, mass lesion, or acute infarct. Brain par enchyma appears normal. The ventricles and subarachnoid spaces are normal in size. The calvarium ap pears normal. There is sinus disease involving the bilateral ethmoid sinuses and right sphenoid sinus . The remaining visualized paranasal sinuses and mastoid air cells are clear. Impression: No intracranial abnormality seen. Sinus disease, as above. Reviewed, dictated and finalized at [facility]. D CROP FARM WORKER Impression: No intracranial abnormality seen. Sinus disease, as above.
--- NOTE | ~2023-06-30 | XR_ITS ---
EXAMINATION: XR chest 1V INDICATION: Cough and shortness of breath TECHNIQUE: AP view of the chest is obtained. COMPARISON: 05/20/2022 FINDINGS: The lung volumes are low. There are airspace opacities of the lung bases. No pleural effusi on or pneumothorax. The cardiomediastinal silhouette is normal. IMPRESSION: 1. Bibasilar airspace opacities, consistent with atelectasis versus pneumonia. Reviewed, dictated and finalized at location L. HICS EDITOR
[2023-06-30 10:27] VITALS: BP 125/75; PULSE 106; RESP 24; O2SAT 87
--- NOTE | 2023-06-30 10:31 | ECG_ITS ---
Measurements Intervals [place] Rate: 109 P: 52 PA: 171 QRS: -12 QRSD: 100 T: 15 QT: 325 QTc: 439 Interpretive Statements SINUS TACHYCARDIA DELAYED PRECORDIAL R/S TRANSITION INFERIOR INFARCT, AGE INDETERMINATE BASELINE ARTIFACT- V5 ABNORMAL ECG COMPARED TO ECG 12/29/2022 16:27:01 NO SIGNIFICANT CHANGES Electronically Signed On 06-30-2023 11:54:41 SPACE OFFICER by Luis Troncoso D.O.
--- NOTE | 2023-06-30 10:36 | ED.AMS ---
HPI - Altered Mental Status General Chief Complaint: Altered Mental Status <Dolly Schneider PA-C - Last Filed: 06/30/23 18:38> Stated Complaint: AMS d/t drug use <Dolly Schneider PA-C - Last Filed: 06/30/23 18:38> Time Seen by Provider: 06/30/23 10:18 <Dolly Schneider PA-C - Last Filed: 06/30/23 18:38> History of Present Illness HPI narrative: 37-year-old male with a history of alcoholism for evaluation for alcohol intoxication. Patient is somnolent but is arousable and does answer questions. He states he has been on a binge for the past 7 to 8 days drinking approximately 1.75 L of vodka daily with white claws and beers. His ex- is present at bedside and assist with history. She states he has been an alcoholic for many years and has been to rehab in [place] and most recently at [facility] in [place]. He was discharged approximately 30 days ago. Patient's ex- states he has not been to work in approximately 9 days and was on answer his phone, so she went to his house today to find him on the floor sleeping. She was able to get him up and therefore drove him to the ED. She does report has a history of depression but denies history of suicide attempts. Patient states he desires to go to [place] for rehab as this is where his cousin has found success for alcoholism. Patient denies chest pain, shortness of breath, abdominal pain. He does report cough and some vomiting. He denies SI or HI, history of suicide attempt. Last alcoholic beverage was 3 hours ago. <Dolly Schneider PA-C - Last Filed: 06/30/23 18:38> Related Data Allergies/Adverse Reactions: Allergies Allergy/AdvReac Type Severity Reaction Status Date / Time lisinopril Allergy Mild Cough Verified 04/27/23 09:47 <Dolly Schneider PA-C - Last Filed: 06/30/23 18:38> Review of Systems Review of Systems: CONSTITUTIONAL: Denies fever, chills EYES: Denies visual changes, redness, or discharge. ENT: Denies rhinorrhea, congestion, sore throat, or otalgia. CARDIOVASCULAR: Denies chest pain, palpitations, or edema. RESPIRATORY: Denies cough or dyspnea. GASTROINTESTINAL: See HPI GENITOURINARY: Denies dysuria or hematuria. SKIN: Denies rash or itching. MUSCULOSKELETAL: Denies back pain, joint pain, or myalgia. NEUROLOGIC: Denies headache, numbness, dizziness, or weakness. PSYCHIATRIC: Denies anxiety or depression. <Dolly Schneider PA-C - Last Filed: 06/30/23 18:38> [facility] Past Medical History Medical History: Medical History Alcohol abuse Anxiety and depression Anxiety disorder, unspecified BMI 39.0-39.9,adult BMI 40.0-44.9, adult BMI 45.0-49.9, adult Dietary counseling and surveillance (09/02/17) Essential (primary) hypertension ETOH abuse Hepatitis A Hypertension Impacted cerumen of left ear Influenza Morbid (severe) obesity due to excess calories Screening cholesterol level Screening for diabetes mellitus Screening for diabetes mellitus Screening for lipid disorders Screening for thyroid disorder <Dolly Schneider PA-C - Last Filed: 06/30/23 18:38> Surgical History Surgical History: Surgical History H/O wisdom tooth extraction <Dolly Schneider PA-C - Last Filed: 06/30/23 18:38> Family History Family History: Family History Father Alcohol abuse Hypertension Mother Tobacco abuse Sibling Hypertension <Dolly Schneider PA-C - Last Filed: 06/30/23 18:38> Social History Social History: Social History Social History: The patient has 2 small daughters. He is Divorved and his ex- yakov talavera is his durable [id number] for healthcare. He does use marijuana. The patient has minute managing on vodka and beer over the last several
[2023-06-30 10:58] LABS: Basophils Absolute Auto 0.1 K/mm3 (0.0-0.1); Basophils Percent Auto 0.7 % (0.2-1.2); Eosinophils Percent Auto 0.3 % (0-4.4); Hematocrit 48.1 % (42.0-52.0); Hemoglobin 16.3 g/dL (14.0-18.0); Immature Granulocyte Absolute 0.02 K/mm3 (0.00-0.031); Immature Granulocyte Percent A 0.3 % (0-0.5); Immature Platelet Fraction Pct 4.1 % (0.9-11.2); Lymphocytes Absolute Auto 1.61 K/mm3 (0.9-3.2); Lymphocytes Percent Auto 23.6 % (18.3-44.2); Mean Corpuscular HGB Conc 33.9 g/dl (32-36); Mean Corpuscular Hemoglobin 29.3 pg (26-34); Mean Corpuscular Volume 86.5 fl (80-100); Mean Platelet Volume 9.9 fl (7.4-10.4); Monocytes Absolute Auto 0.4 K/mm3 (0.1-0.6); Monocytes Percent Auto 6.5 % (2.6-8.5); Neutrophils Absolute Auto 4.7 K/mm3 (1.3-6.7); Neutrophils Percent Auto 68.6 % (45.5-73.1); Platelet Count Result 147 k/mm3 (150-375); Red Blood Count 5.56 M/mm3 (4.6-6.20); Red Cell Distribution Width 13.6 % (11.5-14.5); White Blood Count 6.8 K/mm3 (4.5-10.0)
[2023-06-30 11:15] VITALS: O2SAT 87
[2023-06-30 11:18] LABS: Troponin I 0.028 ng/mL (0.000-0.034)
[2023-06-30 11:20] LABS: Acetaminophen < 10 ug/mL (10-30); Salicylate < 1.0 mg/dL (2-20)
[2023-06-30 11:44] LABS: Ethanol 320 mg/dL (<10)
[2023-06-30 11:46] LABS: Alanine Aminotransferase 115 U/L (6-50); Albumin Level 4.6 g/dL (3.5-5.1); Alkaline Phosphatase 103 U/L (38-126); Anion Gap 15 mmol/L (8-16); Aspartate Amino Transferase 205 U/L (17-59); Bilirubin,Total 1.9 mg/dL (0.2-1.3); Blood Urea Nitrogen 15 mg/dL (9-20); Carbon Dioxide 30 mmol/L (22-30); Chloride 89 mmol/L (98-107); Creatine Kinase 1576 U/L (55-170); Estimated CRCL calculation 192 ml/min; Estimated Glomerular Filt Rate > 60; Glucose 102 mg/dL (65-110); Potassium 3.8 mmol/L (3.4-5.0); Sodium 134 mmol/L (137-145)
[2023-06-30] MEDS: SODIUM CHLORIDE 0.9% IV 1,000 ML 999 ML IV CONT ×3 (11:51→13:32)
[2023-06-30 11:53] VITALS: BP 156/97; PULSE 110; RESP 25; O2SAT 99
[2023-06-30 12:01] VITALS: BP 151/86; PULSE 109; RESP 28; TEMP 37.2; O2SAT 99
[2023-06-30 12:07] LABS: Appearance Urine Clear (Clear); Bacteria Urine None Seen /hpf; Bilirubin Urine 2+ (Negative); Blood Urine 2+ (Negative); Color Urine Dark Yellow (Yellow); Glucose Urine UA Negative (Negative); Ketones Urine 3+ mg/dL (Negative); Leukocyte Esterase Ur Negative LEU/UL (Negative); Nitrate Urine Negative (Negative); Protein Urine 3+ mg/dL (Negative); Specific Grav Ur 1.024 (1.001-1.035); Squamous Epithelial Cell Urine None seen /hpf (Few); WBC Urine 0-5 /hpf; pH Urine 6.5 (5.0-9.0)
[2023-06-30 12:21] LABS: Amphetamine Screen Urine Negative (Negative); Barbiturate Screen Urine Negative (Negative); Benzodiazepines Screen Urine Negative (Negative); Cannabinoid Screen Urine Negative (Negative); Cocaine Screen Urine Negative (Negative); Methadone Screen Urine Negative (Negative); Opiate Screen Urine Negative (Negative); Phencyclidine Screen Urine Negative (Negative)
[2023-06-30 12:24] LABS: Lipase 192 U/L (23-300); Phosphorus 3.7 mg/dL (2.5-4.5)
--- NOTE | 2023-06-30 12:27 | PC.NURSE ---
Pt found half off the stretcher, all monitors off. Pt states he got up to get his phone. Instructed he is not to get up without assistance from staff. Sao2 on room air at this time 87%. Oxygen non-rebreather mask reapplied. Pt instructed once again of the importance of leaving oxygen intact.Pt repositioned and monitors reapplied
[2023-06-30 12:30] LABS: Add Urine Microscopic? YES
--- NOTE | 2023-06-30 13:04 | PC.NURSE ---
Pt alert, asking for non rebreather to removed. Oxygen at 4L NC applied with instructions to leave intact & leave pulse ox intact
[2023-06-30 13:06] VITALS: BP 148/80; PULSE 115; RESP 28; O2SAT 96
[2023-06-30 13:15] VITALS: BP 151/86; PULSE 117; RESP 22; O2SAT 92
[2023-06-30] MEDS: LORazepam INJ (*CRX) 2 MG/ML VIAL 1 MG IV PUSH (14:25)
[2023-06-30] MEDS: SODIUM CHLORIDE 0.9% IV 1,000 ML 125 ML IV CONT (14:30)
--- NOTE | 2023-06-30 15:31 | PC.NURSE ---
Pt disconnected IV 500ml drained, connected back to IV pump, pt instructed to leave IV infusion intact.
--- NOTE | 2023-06-30 15:40 | PC.NURSE ---
color making supervisor made aware patient eloped out of ED EMS doors. Security pursuing patient and will call Sandhya HARDY to inform them.
--- NOTE | 2023-06-30 15:43 | PC.NURSE ---
Pt states he wanted to leave, encouraged pt to stay for admission, RN voiced concerns of pt being intoxicated that it is not safe for pt to leave. Pt states I have a ride and you can not make me stay Pt pulled out IV and left out ambulance bay. Security called, Sandhya HARDY called.
--- NOTE | 2023-06-30 15:45 | PC.NURSE ---
Will from security called to inform this RN that Sandhya HARDY will not be pursuing patient because patient is no longer on hospital property and he is not being admitted involuntarily. Sandhya HARDY aware patient is under the influence of alcohol and on foot.
== END 2023-06-30 16:06 | disposition left against medical advice (07) ==
LOC: ANHED 13:54 → ANH2MED 15:47
PROVIDERS: Emergency Provider Physician Assistant; PCP Family Medicine; Visit Provider Internal Medicine
DX: F10.129 Alcohol abuse with intoxication, unspecified (principal); Y90.8 Blood alcohol level of 240 mg/100 ml or more; M62.82 Rhabdomyolysis; I10 Essential (primary) hypertension; E66.01 Morbid (severe) obesity due to excess calories; Z68.42 Body mass index [BMI] 45.0-49.9, adult; F41.9 Anxiety disorder, unspecified; F32.A Depression, unspecified; F17.290 Nicotine dependence, other tobacco product, uncomplicated; Z79.85 Long-term (current) use of injectable non-insulin antidiabetic drugs; Z79.899 Other long term (current) drug therapy; R00.0 Tachycardia, unspecified; R94.31 Abnormal electrocardiogram [ECG] [EKG]; J32.2 Chronic ethmoidal sinusitis; J32.3 Chronic sphenoidal sinusitis; R91.8 Other nonspecific abnormal finding of lung field
CPT/HCPCS: 36415; 70450; 71045; 80053; 80307; 81001; 82550; 83690; 83735; 84100; 84484; 85025; 85055; 93005; 96361; 96374; 99285; J2060; J7030